=== PATIENT | male | born 1960 | race African-American/Black ===

== ENCOUNTER 2017-08-08 13:53 | Emergency (ER) | payer OTHER, MEDICAID ==
[~2017-08-08] VITALS: Ht 172.7 cm; Wt 64.0 kg
[~2017-08-08 13:53] MED LIST: AM10 GT; BENA20TA3 PO; DOCU-138 PO; OMEP20CA10 PO; OXYB5TAB11 PO; PROP80CA2 PO; TAMS0.4C31 PO; TAP5 PO; TRAM50TA3 PO
[2017-08-08 14:39] LABS: HEMATOCRIT. 37.5 % (42.0-52.0); HEMOGLOBIN. 12.3 g/dL (14.0-18.0); MEAN CORPUSCULAR HEMOGLOBIN 26.9 pg (28.0-32.0); MEAN CORPUSCULAR VOLUME 82.3 fL (80.0-94.0); MEAN PLATELET VOLUME 8.3 fl (7.4-10.4); PLATELET 181 x1000/uL (130-400); RED BLOOD CELL COUNT 4.56 mill/uL (4.7-6.1); RED CELL DISTRIBUTION WIDTH 14.7 % (11.6-14.6)
[2017-08-08] MEDS ORDERED: TRAMADOL 50MG TABLET PO ONE (14:45)
[2017-08-08 14:48] LABS: PARTIAL THROMBOPLASTIN TIME 30.3 sec (23.4-31.0); PROTHROMBIN TIME 10.8 sec (9.4-11.6)
[2017-08-08 14:53] VITALS: BP 101/62
[2017-08-08 14:56] LABS: CARBON DIOXIDE 26 mEq/L (21-32); CHLORIDE 104 mEq/L (98-107); CREATINE KINASE 78 IU/L (39-308); CREATINE KINASE MB FRACTION 2.3 ng/mL (0.5-3.6); TROPONIN I < 0.02 ng/mL (0.00-0.04)
[2017-08-08 15:16] LABS: PLATELET ESTIMATE NORMAL
== END 2017-08-08 15:52 | disposition home or self-care (01) ==
LOC: ER 14:20
DX: R07.89 Other chest pain (principal); F07.89 Other personality and behavioral disorders due to known physiological condition; E05.90 Thyrotoxicosis, unspecified without thyrotoxic crisis or storm; D64.9 Anemia, unspecified; R94.8 Abnormal results of function studies of other organs and systems; I11.9 Hypertensive heart disease without heart failure; Z88.3 Allergy status to other anti-infective agents
CPT/HCPCS: 36415; 71010; 80053; 82550; 82553; 83690; 83880; 84484; 85025; 85610; 85730; 93005; 99285